=== PATIENT | female | born 1980 | race Caucasian/White ===

== ENCOUNTER 2018-08-10 08:36 | Inpatient (IN) ==
[2018-08-10] MEDS ORDERED: ZOFRAN IV ONE (08:59)
[2018-08-10] MEDS ORDERED: MORPHINE IV ONE ×2 (09:00→10:10)
[2018-08-10 10:22] LABS: AGAP 12; ALB/GLOB RATIO 1.3; ALBUMIN 4.2 g/dL (3.5-5.0); ALKALINE PHOSPHATASE 93 U/L (32-104); BUN 15 mg/dL (8-22); CHLORIDE 103 mmol/L (98-107); COSMO 277; CREATININE 0.9 mg/dL (0.5-0.9); ESTIMATED GFR > 60; GLUCOSE 110 mg/dL (70-104); GOT 29 U/L (10-30); GPT 16 U/L (10-36); POTASSIUM 3.2 mmol/L (3.5-5.1); SODIUM 138 mmol/L (136-145); TCO2 23 mmol/L (25-35); TOTAL BILIRUBIN 0.51 mg/dL (0.20-1.00); TOTAL PROTEIN 7.5 g/dL (6.3-8.3)
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
[2018-08-10 11:19] LABS: BASO# 0.03 X1000 (0.0-0.2); BASO% 0.3 % (0.0-0.8); EOS# 0.09 X1000 (0.0-0.7); EOS% 0.8 % (0.0-10.0); HEMATOCRIT 38.1 % (37.0-47.0); HEMOGLOBIN 12.7 g/dL (12.0-16.0); IMM GRAN# 0.03 X1000 (0.0-0.04); IMM GRAN% 0.3 % (0.0-0.5); LYMPH# 1.09 X1000 (1.2-3.4); LYMPH% 9.7 % (20.5-51.1); MCH 25.5 PG (27-31); MCHC 33.3 g/dL (33-37); MCV 76.5 FL (81-99); MONO# 0.72 X1000 (0.11-0.59); MONO% 6.4 % (1.7-9.3); NEUT# 9.27 X1000 (1.4-6.5); NEUT% 82.5 % (42.2-75.2); PLT 328 X1000 (130-400); RBC 4.98 XMIL (4.2-5.4); RDW 15.4 % (11.5-14.5); WBC 11.23 X1000 (4.8-10.8)
[2018-08-10] MEDS ORDERED: DILAUDID IV ONE (11:26)
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
[2018-08-10] MEDS ORDERED: OXY IR PO PRN (12:10)
[2018-08-10] MEDS ORDERED: NS 1,000 ML IV ONE (12:10)
--- NOTE | 2018-08-10 12:33 | Diag Imaging Result Doc PS360 ---
CHEST-PORTABLE - 08/10/2018 INDICATION: admit COMPARISON: 06/03/2018 FINDINGS: The lungs are normally expanded and clear. Heart size and mediastinal contours are normal. No pneumothorax or pleural effusion. IMPRESSION: Negative exam. Electronically signed by Min Worthington 08/10/2018 12:31 PM
[2018-08-10] MEDS: DILAUDID IV PRN ×5 (12:55→22:23)
--- NOTE | 2018-08-10 13:26 | Diag Imaging Result Doc PS360 ---
CT EXT LOWER RIGHT W/O CON - 08/10/2018 INDICATION: Fracture TECHNIQUE: CT right ankle COMPARISON: Previous x-rays FINDINGS: There is an impacted displaced laterally angulated both bone ankle fracture. There are comminuted, primarily transverse fractures at the distal tibia and fibular shafts primarily just above the syndesmosis. There are comminuted fracture lines intra-articularly through the distal tibia, with significant disruption of the anterior and medial malleolus. The posterior and lateral malleolar line are fairly intact. No fractures to the foot. IMPRESSION: Comminuted, displaced, angulated ankle fracture involving the distal tibia and fibula. Electronically signed by Min Worthington 08/10/2018 1:24 PM
[2018-08-10] MEDS: ZOFRAN IV PRN (15:57)
[2018-08-10] MEDS ORDERED: KEFZOL 1 GM/D5W 1 GM/50 ML IVPB IV ONE (22:00)
[2018-08-11] MEDS: ZOFRAN IV PRN
[2018-08-11] MEDS: DILAUDID IV PRN ×5 (00:03→13:55)
[2018-08-11] MEDS ORDERED: SODIUM CHLORIDE 0.9% INJ PRN (00:42)
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
[2018-08-11] MEDS: PHENERGAN IV PRN (01:36)
[2018-08-11 01:52] LABS: URINE SOURCE CATH
[2018-08-11 02:11] LABS: BILIRUBIN URINE NEGATIVE (NEGATIVE); BLOOD URINE SMALL (NEGATIVE); COLOR YELLOW; GLUCOSE URINE NEGATIVE (NEGATIVE); KETONE URINE TRACE mg/dL (NEGATIVE); LEUKOCYTES URINE NEGATIVE (NEGATIVE); NITRITE URINE NEGATIVE (NEGATIVE); PH URINE 6.5; PROTEIN URINE 100 mg/dL (NEGATIVE); SP GRAVITY URINE 1.047; TURBIDITY URINE CLEAR (CLEAR); UROBILINOGEN URINE NORMAL (NORMAL)
[2018-08-11 02:12] LABS: UR EPITHELIAL CELLS <10 /HPF (<10); URINE BACTERIA NEGATIVE /HPF; URINE RBC 20-40 /HPF (<10); URINE WBC <10 /HPF (<10)
[2018-08-11] MEDS ORDERED: KEFZOL 1 GM/D5W 1 GM/50 ML IVPB IV ONE (09:01)
[2018-08-11] MEDS ORDERED: TYLENOL PO PRN (11:57)
[2018-08-11] MEDS ORDERED: NAROPIN 0.5% ONE (15:57)
[2018-08-11] MEDS ORDERED: ZOFRAN ONE (16:13)
[2018-08-11] MEDS ORDERED: XYLOCAINE-MPF 2% ONE (16:13)
[2018-08-11] MEDS ORDERED: DECADRON ONE (16:13)
[2018-08-11] MEDS ORDERED: DIPRIVAN 1% ONE (16:13)
[2018-08-11] MEDS ORDERED: ROBINUL ONE (16:13)
[2018-08-11] MEDS ORDERED: VERSED ONE (16:27)
[2018-08-11] MEDS ORDERED: FENTANYL ONE (16:27)
[2018-08-11] MEDS: DILAUDID ONE ×2 (17:22→17:25)
[2018-08-11] MEDS ORDERED: NS 1,000 ML ONE (17:37)
--- NOTE | 2018-08-11 18:47 | OPERATIVE NOTE ---
PROCEDURE DATE: 08/11/2018 PREOPERATIVE DIAGNOSIS: Right comminuted tibial pilon fracture distally and right fibula fracture of the shaft at the distal third. POSTOPERATIVE DIAGNOSIS: Right comminuted tibial pilon fracture distally and right fibula fracture of the shaft at the distal third. PROCEDURE: External fixation of right tibial pilon and fibula fractures. ANESTHESIA: General. SURGEON: Az Merrill MD. GRINDING AND SPRAYING SUPERVISOR: Cassia Rothman PA-C, who was present throughout the case and assisted with placement of the pins and dressing. BLOOD LOSS: Minimal. TOURNIQUET TIME: None. DESCRIPTION OF PROCEDURE: Patient was brought to the operative suite and placed in supine position. After successful administration of general anesthesia, a stab incision was made overlying the calcaneus body. A calcaneal pin was then driven across calcaneus through a stab incision from medial to laterally, and then once the screws were seated in the calcaneus, attention was directed to the 2 tibial pins. One was placed close to the knee, and using the guide, the next pin was placed from medial to posterolateral. Once we were sure that these were engaged and in the proper position, clamps were placed and bars were placed under traction under fluoroscopy. We reduced the fracture. Once it was verified to be in good position, we tightened all the clamps for the bars. Postreduction x-ray showed acceptable alignment. The sterile dressing was placed on the wounds. The patient tolerated the procedure well without complication. The patient was transferred to the recovery room in stable condition. cc: Az Merrill MD
[2018-08-12] MEDS: PERIDEX MT SCH ×2 (00:44→08:42)
[2018-08-12] MEDS: NORCO-10 PO PRN ×5 (02:03→23:05)
[2018-08-12] MEDS: NS 1,000 ML IV SCH ×2 (08:42→19:39)
[2018-08-12] MEDS: DILAUDID IV PRN ×5 (08:45→21:30)
--- NOTE | 2018-08-12 09:12 | ORTHOPAEDICS PROGRESS NOTE ---
DATE: 08/12/2018 SUBJECTIVE: Ms. Pascual is a 38-year-old female who is postoperative day 1 from an external fixation of the right tibial pilon and fibular fracture. She has had some drainage about her pin sites, but overall, she is doing well. OBJECTIVE: General: She is a well developed, well-nourished female. She is alert, oriented, cooperative with examination. She is in no acute distress. Vital Signs: Stable. She is afebrile. Right lower extremity: She has some drainage around her right lower leg pin sites. Her right leg is grossly neurovascular intact. ASSESSMENT: Stable postoperative day 1 from a right internal fixation of the right tibial pilon and fibular fractures. PLAN: We are going to re-enforce her dressings around pin sites. We will see how she does with physical therapy. We will monitor her and see how she is doing tomorrow. Dictated by DEJA Robins for Az Merrill MD cc: DEJA Robins MD MTD
[2018-08-12] MEDS: PHENERGAN IV PRN (23:05)
[2018-08-13] MEDS: NS 1,000 ML IV SCH (05:13)
[2018-08-13] MEDS: NORCO-10 PO PRN ×3 (05:59→23:50)
[2018-08-13] MEDS: PERIDEX MT SCH ×2 (10:02→21:38)
[2018-08-13] MEDS: DILAUDID IV PRN ×3 (14:46→21:38)
--- NOTE | 2018-08-13 17:54 | ORTHOPAEDICS PROGRESS NOTE ---
DATE: 08/13/2018 SUBJECTIVE: Ms. Pascual is a 38-year-old female, who is postoperative day 2 from a external fixation of her right tibial pilon and fibular fracture. She has no new complaints. OBJECTIVE: She is a well-developed well-nourished female. She does appear somewhat sedated. She is in no acute distress. Her vital signs are stable. She is afebrile. Her right lower extremity dressings are clean, dry, and intact. There is some bloody drainage about the proximal pin sites. Her right leg is grossly neurovascularly intact. PHYSICAL THERAPY: She has had little progress with physical therapy. ASSESSMENT: Stable postoperative day 2 from an external fixation of her right tibial pilon and fibular fractures. PLAN: We will have her continue working with Physical Therapy. We feel that she would benefit from a rehabilitation facility. Hopefully, we can get her into rehabilitation facility later this week. Dictated by DEJA Robins for Az Merrill MD cc: DEJA Robins MD
[2018-08-13] MEDS: PHENERGAN IV PRN (23:50)
[2018-08-14] MEDS: NORCO-10 PO PRN ×2 (06:59→12:05)
[2018-08-14] MEDS: PERIDEX MT SCH (09:13)
[2018-08-14 12:42] VITALS: BP 101/79
--- NOTE | 2018-08-14 22:01 | DISCHARGE SUMMARY ---
ADMISSION DATE: 08/10/2018 DISCHARGE DATE: 08/14/2018 DISCHARGE DIAGNOSES: Right comminuted pilon and fibula distal fourth shaft fracture status post external fixator placement. DISCHARGE MEDICATIONS: See discharge med list. DISPOSITION: The patient discharged home. INSTRUCTIONS: Nonweightbearing right lower extremity. Instructed to return to see Dr. Muniz on Saturday with plans to fix her ankle next week. HOSPITAL COURSE: On the day of admission the patient was admitted for a tibial plateau fracture. On 08/12 she underwent external fixator placement. Her postoperative course was remarkable for slow progress with physical therapy and difficulty with pain control. At discharge she is afebrile, tolerating a regular diet, pain is controlled with p.o. pain medicine, and she is able to ambulate nonweightbearing with a walker. She is discharged home in stable condition with instructions to follow up as described above. cc: Az Merrill MD
== END 2018-08-14 13:33 | disposition home or self-care (01) | DRG 482 ==
LOC: SUPCPDRO → ED 08:36 → 4N 12:22
PROVIDERS: ADMIT Orthopaedic Surgery; ATTEND Orthopaedic Surgery
CPT/HCPCS: 51702; 71010; 71045; 73562; 73610; 73700; 74177; 76000; 80053; 81001; 81025; 85025; 86850; 86900; 86901; 93005; 94761; 96374; 96375; 96376; 97110; 97162; 97530; 99285; A9270; J0690; J1100; J1170; J2250; J2270; J2405; J2550; J2795; J3010; J7030; Q9967

== ENCOUNTER 2018-08-29 10:01 | Day surgery (SDC) ==
[2018-08-29] MEDS ORDERED: KEFZOL 1 GM/D5W 1 GM/50 ML IVPB ONE (10:24)
[2018-08-29] MEDS ORDERED: PEPCID ONE (10:24)
[2018-08-29] MEDS ORDERED: REGLAN ONE (10:24)
[2018-08-29] MEDS ORDERED: LR 1,000 ML ONE (10:24)
[2018-08-29] MEDS ORDERED: ZOFRAN ONE (10:51)
[2018-08-29] MEDS ORDERED: DIPRIVAN 1% ONE (10:51)
[2018-08-29] MEDS ORDERED: XYLOCAINE-MPF 2% ONE (10:51)
[2018-08-29] MEDS ORDERED: DECADRON ONE (10:51)
[2018-08-29] MEDS ORDERED: ROBINUL ONE (10:51)
[2018-08-29] MEDS ORDERED: EXPAREL 1.3% ONE (11:51)
[2018-08-29] MEDS ORDERED: MARCAINE 0.5% PF ONE (11:51)
[2018-08-29] MEDS ORDERED: VERSED ONE (12:05)
[2018-08-29] MEDS ORDERED: FENTANYL ONE (12:06)
[2018-08-29] MEDS ORDERED: TORADOL ONE (15:13)
[2018-08-29] MEDS ORDERED: DILAUDID ONE (15:44)
[2018-08-29] MEDS ORDERED: ZOFRAN IV PRN (16:03)
[2018-08-29] MEDS ORDERED: OXY IR PO PRN (16:03)
[2018-08-29] MEDS ORDERED: SENOKOT PO PRN (16:03)
[2018-08-29] MEDS: DILAUDID ONE ×3 (16:19→16:28)
[2018-08-29] MEDS: NORCO-10 PO PRN (19:42)
[2018-08-29] MEDS: KEFZOL 1 GM/D5W 1 GM/50 ML IVPB IV SCH (20:11)
[2018-08-29] MEDS: PERIDEX MT SCH (20:11)
--- NOTE | 2018-08-29 22:06 | OPERATIVE NOTE ---
PROCEDURE DATE: 08/29/2018 PREOPERATIVE DIAGNOSIS: 1. Right tibial pilon fracture. 2. Right distal fibular fracture. 3. Right external fixator in place. POSTOPERATIVE DIAGNOSIS: 1. Right tibial pilon fracture. 2. Right distal fibular fracture. 3. Right external fixator in place. PROCEDURES: 1. Removal of external fixator. 2. Right open reduction and internal fixation, tibial pilon fracture. 3. Right open reduction and internal fixation, lateral malleolus fracture. 4. 22 modifier for an unusually hard procedure. SURGEON: Dr. Franky Muniz. DEVELOPER RELATIONS MANAGER: BALJINDER Nunez, who was an integral part of the case, helping with all aspects of the case, helping to increase our operating room efficiency greatly. She helped with our reduction and with placement of all our hardware. ANESTHESIA: General with LMA. EBL: 100 mL. IMPLANTS: 1. Synthes anterolateral plate and screws. 2. Synthes 1/3 tubular plate and screws. DISPOSITION: To PACU, hemodynamically stable. INDICATION FOR PROCEDURE: Ms. Pascual is a 38-year-old female on whom my partner did external fixation for tibial pilon fracture. Saw her in clinic. We discussed definitive fixation. She expressed understanding and wished to proceed. DESCRIPTION OF PROCEDURE: Ms. Pascual was identified in the preoperative holding area. The right foot was marked as correct surgical site. She was then wheeled to the operating room, placed supine on the operating table. All bony prominences were well padded. She was induced under general anesthesia. LMA was placed. Tourniquet was placed to the right thigh. Surgical pause was performed. We identified the correct patient, correct site, and the correct procedure. Preop antibiotics were given. I then removed the external fixator. I removed all the bars first and then, using a T-handle, I was able to get the 2 pins out of the tibia, and then we cut the calcaneal pin short, dressed it with Betadine, and then removed it with a T-handle as well. That completed our external fixator removal. The leg was then scrubbed with chlorhexidine gluconate scrub and then ChloraPrep, and then draped in normal sterile fashion. Another surgical pause was performed. We identified the correct patient, correct site, and the correct procedure. Esmarch was used to exsanguinate the right lower extremity. Tourniquet was inflated to 300 mmHg. I started with an incision over the fibula. Dissection was carried down. I exposed that fibula. There had already been a little bit of healing bone there. It was very difficult to get the fibula out to length, and I think our tibia was really hindering us there, and so we ended up making that anterior incision over the ankle and up the tibia. Dissection was carried down. We avoided the neurovascular bundle and retracted it laterally and retracted the tibialis anterior medially. I came up to the fracture site. There was a lot of comminution laterally. There were a lot of small fragments all through that whole area. It was in valgus and then there was the medial extension that from the shaft as well. It was very hard to get a reduction and it took us a good while to get a good reduction. I ended up using a lot of temporary fixation in the form K-wires as we pieced everything back together, and pieced the joint together first. I pieced that anterolateral piece together as well. Then, once we had the joint back, on that lateral view there was just about a mm step-off right at the fracture site right across the dome. Overall alignment looked good. After I had pieced all the periarticular fragments back together, I then reduced her out of valgus and did some temporary fixation to hold her to the shaft as well. Fluoroscopic imaging then showed that we were out to length. I could get my fibula out to length at that point, also. I then threw a lot of cannulated screws in that distal tibia to hold each of the small periarticular fragments. We did several of those to hold everything together. Then, after I was able to get a good reduction of the joint, I then put my anterolateral plate on, secured it proximally with a cortical screw, and then distally with 5 locking screws to hold everything together. I then placed one medial malleolar screw to hold that piece in, and that came together well also. I put that it was a 22 modifier because it was extremely hard to get the reduction and keep it, and put all the fixation in at the same time, but I think in the end, our joint looked really good. She had good, smooth range of motion. I then went over to the fibula, got it out to length, and put a 1/3 tubular plate on with 3 screws proximal and 3 screws distal. Fluoroscopic imaging then showed that we had everything out to length. Our varus and valgus looked good on that AP view. On the mortise view, the joint looked really good and the fibula was out to length. On the lateral view, you could see that little bit of about a mm step-off at the joint line, that vertical crack down the middle, but overall everything came together well and I think our fixation looked good, also. We then closed everything in a layered fashion, with 0 Vicryl for the deep layer, 2-0 Vicryl for the subcutaneous, and nylon on the skin. Adaptic, 4x4s, ABD, Sof-Rol, and posterior splint were applied. Tourniquet was let down. Patient had good capillary refill return to the toes. She was then awoken from general anesthesia, moved to her own bed, and taken to PACU in stable condition. Postop, she will be admitted, nonweightbearing, and I will see her in the morning. cc: Franky Muniz MD
[2018-08-30] MEDS: NORCO-10 PO PRN ×4 (00:08→16:09)
[2018-08-30] MEDS: DILAUDID IV PRN ×5 (01:19→17:14)
[2018-08-30] MEDS: KEFZOL 1 GM/D5W 1 GM/50 ML IVPB IV SCH ×2 (05:20→11:53)
[2018-08-30] MEDS ORDERED: LOVENOX SUBQ SCH (06:00)
[2018-08-30] MEDS: PERIDEX MT SCH (09:00)
[2018-08-30 15:44] VITALS: BP 154/74
== END 2018-08-30 17:43 | disposition home or self-care (01) ==
LOC: PAT 10:01 → 4N 10:01 → PAT 08-30 17:43
PROVIDERS: ATTEND Orthopaedic Surgery
CPT/HCPCS: 76000; 81025; 94761; 97162; A9270; C1713; C9290; J0690; J1100; J1170; J1650; J1885; J2250; J2405; J3010; J7120; S0020